=== PATIENT | female | born 1970 | race Two or more races ===

== ENCOUNTER 2024-12-14 08:57 | Emergency (ER) | payer OTHER ==
[~2024-12-14] VITALS: Ht 157.5 cm; Wt 68.9 kg
[2024-12-14] MEDS ORDERED: KETOROLAC TROMETHAMINE 30 MG VIAL ONE (09:36)
[2024-12-14] MEDS ORDERED: METOCLOPRAMIDE HCL 5 MG/ML VIAL ONE (09:36)
[2024-12-14] MEDS ORDERED: DEXAMETHASONE SODIUM PHOSPHATE 4 MG/ML VIAL ONE (09:36)
[2024-12-14] MEDS ORDERED: KETOROLAC TROMETHAMINE 30 MG VIAL IM ONE (09:45)
[2024-12-14] MEDS ORDERED: DEXAMETHASONE SODIUM PHOSPHATE 4 MG/ML VIAL IM ONE (09:45)
[2024-12-14] MEDS ORDERED: METOCLOPRAMIDE HCL 5 MG/ML VIAL IM ONE (09:45)
[2024-12-14] MEDS ORDERED: BUTALB-ACETAMI1 EACH PO (11:25)
== END 2024-12-14 12:42 | disposition home or self-care (01) ==
LOC: ER 08:57
DX: G43.909 Migraine, unspecified, not intractable, without status migrainosus (principal); M54.12 Radiculopathy, cervical region